=== PATIENT | male | born 1980 | race American Indian/Alaskan Native ===

== ENCOUNTER 2024-06-29 14:38 | Emergency (ER) | payer OTHER ==
[~2024-06-29] VITALS: Ht 177.8 cm; Wt 81.7 kg
[~2024-06-29 14:38] MED LIST: AZIT250 PO; BENTYL10 MG PO; CEPH500 PO; CIPR500 PO; CLIN150 PO; CRUTCH3 USE; CYCL10 PO; HYDACE5 PO; HYDR1TAB94 PO; IBUP600; IBUP800 PO; PENVK500 PO; PRED20 PO; RXHYDACE PO; RXPENVK250 PO; RXTRAM50 PO; TRAM50 PO
[2024-06-29 16:02] LABS: BASOPHILS ABSOLUTE AUTO 0.04 K/mm3 (0.00-0.23); BASOPHILS PERCENT AUTO 1 % (0-2); EOSINOPHILS ABSOLUTE AUTO 0.07 K/mm3 (0.00-0.68); EOSINOPHILS PERCENT AUTO 1 % (0-6); Hematocrit 36.4 % (37.0-53.0); Hemoglobin 12.3 g/dL (13.5-17.5); IMMATURE GRAN ABSOLUTE AUTO 0.02 K/mm3 (0.00-0.10); IMMATURE GRAN PERCENT AUTO 0 % (0-1); LYMPHOCYTES PERCENT AUTO 23 % (21-46); MONOCYTES PERCENT AUTO 10 % (4-13); Mean Corpuscular HGB 30.3 pg (26.0-34.0); Mean Corpuscular HGB Conc 33.8 g/dL (31.5-36.5); Mean Corpuscular Volume 90 fL (80-100); Mean Platelet Volume 8.9 fL (9.1-12.4); NEUTROPHILS ABSOLUTE AUTO 5.59 K/mm3 (1.96-9.15); NEUTROPHILS PERCENT AUTO 65 % (41-73); Platelet Count 278 K/mm3 (150-400); RDW Coefficient Variation 11.9 % (11.7-14.2); RDW Standard Deviation 39.2 fL (35.1-46.3); Red Blood Cell Count 4.06 M/mm3 (4.30-5.90); White Blood Cell Count 8.62 K/mm3 (4.00-11.30)
[2024-06-29 16:31] LABS: Albumin, Blood 3.4 g/dL (3.4-5.0); Albumin/Globulin Ratio 0.8 (0.8-1.8); Bilirubin, Total 0.2 mg/dL (0.1-1.0); Bun/Creatinine Ratio 29.6 (12.0-20.0); Calcium, Blood 8.7 mg/dL (8.5-10.1); Creatinine, Blood 0.98 mg/dL (0.60-1.20); Globulin, Blood 4.3 g/dL (2.2-4.0); Potassium, Blood 4.1 mmol/L (3.5-5.5); Total Protein, Blood 7.7 g/dL (6.4-8.2)
[2024-06-29] MEDS ORDERED: Ondansetron HCl 2 MG / ML 2ML Vial IV ONE (17:40)
[2024-06-29 18:10] LABS: Source, Urine Clean Catch
[2024-06-29 18:13] LABS: Appearance, Urine Clear (Clear); Bilirubin, Urine Neg (Neg); Blood, Urine Neg (Neg); Color, Urine Yellow (P-Yellow); Glucose Qualitative, Urine Neg (Neg); Ketones, Urine Neg (Neg); Leukocyte Esterase, Urine Neg (Neg); Nitrite, Urine Neg (Neg); Protein, Urine 1+ (Neg); Specific Gravity, Urine 1.025 (1.003-1.022); Urobilinogen, Urine NORM (Normal)
[2024-06-29 18:23] LABS: Ethanol (Alcohol), Blood, Med 18 mg/dL
[2024-06-29 18:24] LABS: U Amphetamine Screen DETECTED; U Barbituate Screen Not Detected; U Benzodiazapine Screen Not Detected; U Buprenorphine Screen Not Detected; U Cannabinoids Screen DETECTED; U Cocaine Screen Not Detected; U Methadone Screen Not Detected; U Methamphetamine Screen DETECTED; U Opiates Screen Not Detected; U Oxycodone Screen Not Detected; U Phencyclidine Screen Not Detected
[2024-06-29 18:37] LABS: CORONAVIRUS COVID-19 AG Negative (NEGATIVE); INFLUENZA A AG Negative (NEGATIVE); INFLUENZA B AG Negative (NEGATIVE)
[2024-06-29 22:00] VITALS: BP 113/78
== END 2024-06-29 22:35 | disposition home or self-care (01) ==
LOC: ER 14:38
PROVIDERS: Physician Assistant; Student in an Organized Health Care Education/Training Program
DX: F15.929 Other stimulant use, unspecified with intoxication, unspecified (principal); F17.210 Nicotine dependence, cigarettes, uncomplicated; Z88.0 Allergy status to penicillin; Z88.8 Allergy status to other drugs, medicaments and biological substances
CPT/HCPCS: 36415; 80053; 80320; 83690; 85025; 87428-QW; 93005; 93010; 96374; 99285-25; J2405

== ENCOUNTER 2024-08-12 05:35 | Emergency (ER) | payer OTHER ==
[~2024-08-12] VITALS: Ht 167.6 cm; Wt 74.8 kg
[2024-08-12] MEDS ORDERED: OxyCODONE HCL 5 MG TAB PO ONE (08:00)
[2024-08-12] MEDS ORDERED: Neomycin/Polymyxin/Hydrocort Otic 10 ml RIGHTEAR ONE (08:00)
[2024-08-12] MEDS ORDERED: Ketorolac Tromethamine 30mg Vial IM ONE (08:00)
[2024-08-12] MEDS ORDERED: OXYC5 PO (08:05)
[2024-08-12 08:20] VITALS: BP 136/74
== END 2024-08-12 08:21 | disposition home or self-care (01) ==
LOC: ER 05:35
DX: T16.1XXA Foreign body in right ear, initial encounter (principal); H60.91 Unspecified otitis externa, right ear; F17.210 Nicotine dependence, cigarettes, uncomplicated; W44.8XXA Other foreign body entering into or through a natural orifice, initial encounter; Z88.0 Allergy status to penicillin; Z88.6 Allergy status to analgesic agent
CPT/HCPCS: 99282; A9270; J1885

== ENCOUNTER 2024-08-27 14:39 | Emergency (ER) | payer OTHER ==
[~2024-08-27] VITALS: Ht 170.2 cm; Wt 70.3 kg
[~2024-08-27 14:39] MED LIST changes: +OXYC5 PO
[2024-08-27 14:47] VITALS: BP 128/85
[2024-08-27] MEDS ORDERED: Docusate Sodium Liquid 100 MG UDC PO ONE (15:30)
[2024-08-27] MEDS ORDERED: Ofloxacin 0.3% Otic Soln 5 ML RIGHTEAR ONE (16:35)
[2024-08-27] MEDS ORDERED: OCUFLOX510 RIGHTEAR (16:37)
== END 2024-08-27 17:09 | disposition other institution (70) ==
LOC: ER 14:39
DX: H60.91 Unspecified otitis externa, right ear (principal); Z88.0 Allergy status to penicillin; Z88.6 Allergy status to analgesic agent
CPT/HCPCS: 69210; 99283-25; A9270